=== PATIENT | female | born 1955 | race Caucasian/White ===

== ENCOUNTER 2025-07-07 06:10 | Day surgery (SDC) | payer BC, SELFPAY ==
--- NOTE | 2025-06-18 15:20 | CM ---
Demographics: confirmed
Living situation: lives with spouse, two level home.
Support Person Post Operatively: , Peewee
History of
VN: No
SNF: No
Outpatient: [facility] scheduled for 07/10
Has patient purchased required equipment: yes
PCP: Christy
Pharmacy: [facility]
Post Operative Discharge Plan: [facility], and then transition to outpatient PT on 07/10
--- NOTE | 2025-06-23 10:42 | VNURNOTE ---
Patient is scheduled for an elective R tka on 07/07- She is a same day patient with Dr Sauceda. Spoke with patient prior to surgery. Introduced role of [facility] Liaison. Patient reports that she lives w/her spouse. She has an in-law suite on first
floor she will utilize post-op.
Patient has a dog, She is aware of pet policy. Patient has a rolling walker.
PCP is Dr Santana
Discussed [facility] joint protocol and post surgical plans.
Reviewed that she will have VN services initially and will then start outpatient PT.
Patient selects [facility] for home care needs and will go to [facility] for outpatient PT. Scheduled for 07/10 .
Patient is in agreement with plan and states that her spouse will be home with her. Advised to bring RW with her day of surgery. Referral placed in [facility].
Plan: [facility] per [facility] joint protocol 07/07 then outpt PT on 07/10
[2025-06-24 13:59] VITALS: BMI 37.0
[2025-06-24 14:24] LABS: Hematocrit 39.5 % (37.0-47.0); Hemoglobin 13.2 g/dL (12.0-16.0); Mean Corp Hgb Conc. 33.4 g/dL (33.0-37.0); Mean Corpuscular Volume 89.2 fL (81.0-99.0); Platelet Count 228 10^3/uL (130-400); Red Cell Dist. Width 12.6 % (11.5-14.5)
[2025-06-24 14:57] LABS: ALT (SGPT) 20 U/L (0-35); AST (SGOT) 22 U/L (14-36); Albumin 4.5 g/dl (3.5-5.0); Alkaline Phosphatase 63 U/L (38-126); Blood Urea Nitrogen 18 mg/dl (7-17); Calcium 9.4 mg/dl (8.4-10.2); Carbon Dioxide 28 mmol/L (22-30); Chloride 105 mmol/L (98-107); Estimated Creatinine Clearance 88 ml/min; Glucose 115 mg/dl (70-99); Potassium 4.2 mmol/L (3.5-5.1); Sodium 136 mmol/L (135-145); Total Protein 7.2 g/dl (6.3-8.2); eGFR > 60.00
[2025-06-25 08:39] LABS: Glycohemoglobin (HgbA1c) 6.3 % (4.0-5.6)
[2025-06-25 16:42] VITALS: BMI 37.0
[2025-07-07] VITALS (13 sets, daily range): BP systolic 110–181; BP diastolic 61–105
[2025-07-07] MEDS: CELEBREX 200 MG PO (08:00)
[2025-07-07] MEDS: TYLENOL 650 MG PO (08:00)
[2025-07-07] MEDS: NORMOSOL-R/PLASMALYTE-A 1000 IV (08:01)
[2025-07-07] MEDS: ANCEF 5 IV (13:45)
[2025-07-07] MEDS: CYKLOKAPRON 650 MG PO (13:45)
[2025-07-07] MEDS: TYLENOL 1000 MG PO (14:10)
== END 2025-07-07 14:57 | disposition home health service (06) ==
LOC: SDS 06:10
PROVIDERS: ATTENDING PHYSICIAN Specialist; FAMILY PHYSICIAN Family Medicine
DX: M17.11 Unilateral primary osteoarthritis, right knee (principal); E66.9 Obesity, unspecified; Z68.37 Body mass index [BMI] 37.0-37.9, adult; I83.90 Asymptomatic varicose veins of unspecified lower extremity
CPT/HCPCS: 27447; 73560; 80053; 83036; 85027; 87070; 93005; 97162; C1713; C1776